=== PATIENT | female | born 1965 | race Caucasian/White ===

== ENCOUNTER → 2024-12-01 08:51 | Outpatient (REF) | payer MEDICARE, OTHER, SELFPAY | LOC: HWRAD 08:51 | PROVIDERS: ATTENDING PHYSICIAN Internal Medicine Rheumatology; FAMILY PHYSICIAN Internal Medicine | DX: E78.49 Other hyperlipidemia (principal); R09.89 Other specified symptoms and signs involving the circulatory and respiratory systems; M34.9 Systemic sclerosis, unspecified | CPT/HCPCS: 75571 ==